=== PATIENT | female | born 2005 | race African-American/Black ===

== ENCOUNTER 2024-05-22 21:55 | Emergency (ER) | payer BC, SELFPAY ==
[2024-05-22 21:57] VITALS: BP 108/68
[2024-05-22 22:56] VITALS: BP 115/71
--- NOTE | 2024-05-22 23:10 | ED.GENMED ---
History of Present Illness
General
Chief Complaint: Fainting/Passed Out
Source: patient and family
Time Seen by Provider: 05/22/24 22:50
History of Present Illness
History of Present Illness:
This patient is a 18-year-old female presents emergency department with a report of an event that happened last night. She had a large meal consisting of steak as well as pie and afterwards started to feel nauseous and really felt like she needed
to vomit. She was laying in bed and felt so ill that she wanted to go to the bathroom to self-induced vomiting. As she was walking into the bathroom, which was full of steam from a recent shower, she started to feel very lightheaded. She
described it as 'I knew I was going to pass out'. She was observed to slowly fall down to the ground and had less than 10 seconds of shaking before she stood up and said 'I am fine'. She does not remember this event. She then went back to bed,
then she fell asleep, and went to work today feeling her usual self. She denies at any time experiencing chest pain, palpitations, dyspnea, headache, neck pain, numbness, tingling, focal weakness, abdominal pain. Patient did not experience
incontinence or postictal state. She is here with her girlfriend who witnessed the event.
Past History
Past History
ED Past Medical History: None
ED Past Surgical History: None
Social History
Tobacco: Smoker
Alcohol: Occasional
Drug: None
Personal: Single
Phy Exam
Physical Exam
Physical Exam:
GENERAL: Alert , in no apparent distress
EYE: pupils equal and reactive, EOMI, no nystagmus
NECK: Supple, no significant adenopathy.
ENT: o/p clr, mmm, no intraoral lacerations or trauma noted.
CARDIAC: Regular rate and rhythm .
LUNGS: Clear breath sounds bilaterally, no acute respiratory distress, no wheezes/rales/rhonchi
ABDOMEN: Soft, without focal tenderness, no r/g, no cvat
NEUROLOGICAL: Alert and oriented, no focal neuro deficits, [id number] normal, motor 5 out of 5, sensory intact, cranial nerves II through XII intact
SKIN: Warm and dry, skin intact.
MUSCULOSKELETAL: No edema, well perfused.
PSYCH: Normal and appropriate interaction.
Course
Orders/Labs/Results
Orders:
Orders
05/22/24 23:01
Electrocardiogram (*1) Urgent
Reason for Study: Syncope
05/22/24 23:02
Electrocardiogram (*1) Stat
Reason for Study: Other
Other Reason for Exam: chest pain
CT Head W/o Iv Contrast Urgent
Comment:
Reason For Exam: syncope vs sz
Cardiac Monitoring- Treatment ONCE
EKG- Treatment ONCE
EKG- Treatment ONCE
Test Result ONCE
05/22/24 23:08
Complete Blood Count/With Diff Urgent
Comprehensive Metabolic Panel Urgent
HCG, Serum Qualitative Screen Urgent
Abnormal Lab Results
05/22/24
23:08
RBC 3.67 L 10^6/uL
(4.20-5.40)
Hgb 11.8 L g/dL
(12.0-16.0)
Hct 34.7 L %
(37.0-47.0)
MCH 32.2 H pg
(27.0-31.0)
MPV 10.5 H fL
(7.4-10.4)
Absolute Lymphs (auto) 4.4 H 10^3/uL
(1.2-3.4)
Lymphocytes % 51.2 H %
(20.5-51.1)
05/22/24 23:08
05/22/24 23:08
Vital Signs
Initial and Last Documented VS:
Initial Vital Signs
Temp Pulse Resp BP Pulse Ox
98.4 F 83 18 108/68 100
05/22/24 21:57 05/22/24 21:57 05/22/24 21:57 05/22/24 21:57 05/22/24 21:57
Last Documented Vital Signs
Temp Pulse Resp BP Pulse Ox
98.2 F 88 17 115/71 100
05/22/24 22:56 05/22/24 22:56 05/22/24 22:56 05/22/24 22:56 05/22/24 22:56
*Critical Care Note
Total Time (30-74mins, 75-104mins- exclusive of procedures): Not Applicable
Update Note
Update Note:
Patient presents to the Emergency Department with ___episode of lightheadedness followed by falling to the ground
Number and Complexity of Problems Addressed at the Encounter
� Chronic conditions affecting care:
� Acute Exacerbation and/or Progression of Chronic Illness:
� Differential Diagnosis includes: But not limited to vasovagal syncope, seizure, arrhythmia, etc. etc.
Amount and/or Complexity of Data to be Reviewed and Analyzed
� I performed an independent evaluation of and my interpretation is:
EKG: Read by me, normal sinus rhythm, normal rate, no acute ischemia
CT: Read by radiology, NAD
Xrays:
Laboratory Studies: Generally unremarkable, hCG negative
Other:
� Review of other/old records reveals:
� Clinical information was obtained by an independent historian: Girlfriend who is bedside
� Prescriptions/Medications Considered but not given:
� Further testing considered but not performed: Highly highly doubt a seizure given lack of characteristic findings that that that no physical findings to suggest seizure, jerking that was described more consistent with myoclonic
jerks post syncope, no incontinence, tongue biting, postictal state. Patient had very vagal like symptoms prior to event, etc.
Risk of Complications and/or Morbidity or Mortality of Patient Management
� Social determinants of health affecting care:
� Discussion with other providers (PCP, Hospitalists, Consultants, etc):
� Escalation of care including admission/observation vs risk of discharge considered: Strongly suspect vagal events, patient asymptomatic at this time. Discussed with her importance of follow-up and reasons to return to the ER.
ED Attending Note
-
Portions of this chart may have been created with voice recognition software.� Occasional wrong word or��sound alike� substitutions may have occurred due to the inherent limitations of voice recognition software.
Discharge Plan
Departure
Patient Disposition: Home (Routine Discharge)
Date of Disposition: 05/22/24
Time of Disposition: 23:56
Patient with high blood pressure during this ER visit?: No
Condition: Good
Discharge Problem:
Syncope
Instructions: Syncope (Fainting) (DC)
Referrals:
UNKNOWN - PT DOES,NOT KNOW [Family Provider] -
Activity Restrictions/Additional Instructions:
IF YOU DEVELOP PALPITATIONS, CHEST PAIN, RECURRENT DIZZINESS, SEVERE HEADACHE, VISUAL CHANGES, PASS OUT, DEVELOP SEIZURE-LIKE ACTIVITY, WEAKNESS, NUMBNESS, OR OTHER WORRISOME SIGNS, PLEASE RETURN TO THE ER IMMEDIATELY.
Interventions
Interventions:
ED- Cardiac Assessment Last Done: 05/22/24 22:56
ED- Neurological Assessment Last Done: 05/22/24 22:56
Discharge Date and Time
Print Language: FRENCH
[2024-05-22 23:18] LABS: % Basophils 0.4 % (0-2); % Eosinophils 0.7 % (0-6); % Immature Granulocytes 0.1 % (0-0.5); % Lymphocytes 51.2 % (20.5-51.1); % Monocytes 3.4 % (1.7-9.3); % Neutrophils 44.2 % (42.2-75.2); Absolute Eosinophils 0.1 10^3/uL (0-0.7); Absolute Lymphocytes 4.4 10^3/uL (1.2-3.4); Absolute Monocytes 0.3 10^3/uL (0.1-0.6); Absolute Neutrophils 3.8 10^3/uL (1.4-6.5); Hematocrit 34.7 % (37.0-47.0); Hemoglobin 11.8 g/dL (12.0-16.0); Mean Corpuscular Hgb 32.2 pg (27.0-31.0); Mean Corpuscular Volume 94.6 fL (81.0-99.0); Mean Platelet Volume 10.5 fL (7.4-10.4); Nucleated Red Blood Cells % 0 %; Platelet Count 205 10^3/uL (130-400); Red Blood Cell Count 3.67 10^6/uL (4.20-5.40); Red Cell Dist. Width 11.8 % (11.5-14.5); White Blood Cell Count 8.5 10^3/uL (4.8-10.8)
[2024-05-22 23:40] LABS: HCG, Serum Qualitative Screen Negative
[2024-05-22 23:44] LABS: ALT (SGPT) 17 U/L (0-35); AST (SGOT) 25 U/L (14-36); Albumin 3.9 g/dl (3.5-5.0); Alkaline Phosphatase 52 U/L (38-126); Blood Urea Nitrogen 15 mg/dl (7-17); Calcium 9.3 mg/dl (8.4-10.2); Carbon Dioxide 25 mmol/L (22-30); Chloride 104 mmol/L (98-107); Glucose 91 mg/dl (70-99); Potassium 3.5 mmol/L (3.5-5.1); Sodium 137 mmol/L (135-145); Total Bilirubin 0.9 mg/dl (0.2-1.3); Total Protein 6.9 g/dl (6.3-8.2); eGFR > 60.00
[2024-05-23 00:06] VITALS: BP 113/56
== END 2024-05-23 00:07 | disposition home or self-care (01) ==
LOC: EMR 21:55
PROVIDERS: EMERGENCY PHYSICIAN Emergency Medicine
DX: R55 Syncope and collapse (principal); F17.200 Nicotine dependence, unspecified, uncomplicated
CPT/HCPCS: 99284; 70450; 80053; 84703; 85025; 93005